=== PATIENT | female | born 1935 | race Caucasian/White ===

== ENCOUNTER 2016-08-12 11:55 | Observation (INO) | payer OTHER ==
[2016-08-03 10:47] LABS: ALLENS TEST Pos; BE (BASE EXCESS) 1.7 MEQ/L (0 +/- 2.5); CARBOXYHEMOGLOBIN 0.8 % (0-3); DEVICE NC; HCO3 (ACTUAL BICARBONATE) 27.3 MEQ/L (23-27); HEMOBLOGIN CONTENT 13.1 G/DL (12-16); INSTRUMENT SERIAL # 8083; METHEMOGLOBIN 0.1 % (0-3); O2 CONTENT 17.6 VOL% (18-24); PCO2 (CO2 TENSION) 47 MMHG (35-45); PO2 (O2 TENSION) 79 MMHG (79-93); SAMPLE Arterial; pH 7.39 (7.37-7.43)
[2016-08-03 11:30] LABS: BASOPHILS 0.4 %; BASOPHILS ABSOLUTE 0.02 10/3/uL (0.0-0.16); HEMATOCRIT 38.1 % (36.0-48.0); HEMOGLOBIN 12.5 g/dL (12.0-16.0); IMMATURE GRANULOCYTES 0.2 %; IMMATURE GRANULOCYTES ABSOLUTE 0.01 10/3/uL (0.0-0.11); LYMPHOCYTES 23.8 %; LYMPHOCYTES ABSOLUTE 1.18 10/3/uL (0.67-4.30); MEAN CORPUS HGB CONC 32.8 g/dL (32.0-36.0); MEAN CORPUSCULAR HEMOGLOB 30.5 pg (26.0-34.0); MEAN PLATELET VOLUME 9.2 fL (9.2-13.0); MONOCYTES 10.3 %; MONOCYTES ABSOLUTE 0.51 10/3/uL (0.21-1.20); NEUTROPHILS 63.3 %; NEUTROPHILS ABSOLUTE 3.13 10/3/uL (2.02-8.40); PLATELET COUNT 146 10/3/uL (150-400); RBC DISTRIBUTION WIDTH 12.8 % (12.0-16.0)
[2016-08-03 11:31] LABS: MANUAL DIFF NO %; MEAN CORPUSCULAR VOLUME 92.9 fL (80-100)
[2016-08-03 11:47] LABS: BUN (BLOOD UREA NITROGEN) 12 MG/DL (6-23); CALCIUM, SERUM 9.1 MG/DL (8.5-10.4); CHLORIDE, SERUM 105 MMOL/L (96-112); CO2 (CARBON DIOXIDE) 29 MMOL/L (24-34); CREATININE 0.91 MG/DL (0.55-1.02); GFR AFRICAN AMERICAN 70 ML/MIN (>=60); GFR NON AFRICAN AMERICAN 60 ML/MIN (>=60); GLUCOSE, SERUM 182 MG/DL (60-99); POTASSIUM, SERUM 3.8 MMOL/L (3.5-5.3); SODIUM, SERUM 144 MMOL/L (135-148)
[2016-08-03 11:49] LABS: ASCORBIC ACID (UR NOT ORDER) NEG (NEG); BILIRUBIN, URINE NEGATIVE (NEG); KETONE, URINE NEGATIVE (NEG); LEUKOCYTE ESTERASE(NOT OR SMALL (NEG); WBC (NOT ORDERED) (RFLEX) 25 (0-5)
--- NOTE | ~2016-08-12 | OP ---
Record Of Operation [facility] [address] [place]. [address] NAME: MICHELLE AMOR : 39 STATUS : ADM [place] PAT#: [id number] AGE: 80 ADM/REG DATE : 08/12/16 MR#: [id number] REPORT SERV DATE: 08/12/16 DICTATED BY: DON YANG III DATE: 08/12/16 REPORT STATUS : Draft TRANSCRIBED BY: MODL DATE: 08/12/16 DATE OF PROCEDURE: 08/12/2016 PROCEDURE: Cystoscopy, right retrograde ureteroscopy, and laser fragmentation of right renal calculus. PREOPERATIVE DIAGNOSIS: Right renal calculus. POSTOPERATIVE DIAGNOSIS: Right renal calculus. ANESTHESIA: General. SURGEON: Don Yang M.D. DESCRIPTION OF PROCEDURE: Following induction of adequate general anesthesia, the patient was placed in the dorsal lithotomy position, prepped and draped in a sterile fashion. The urethra was examined and noted to be normal. The proximal bladder were unremarkable without stone, erythema, or tumor. A retrograde showed a narrow distal ureter. In fact it was difficult to pass a Pollack through the orifice. The ureter was normal caliber, was somewhat small at the UPJ. She had an extrarenal pelvis with a 1.5 cm stone visible before the dye and a filling defect after the dye. A wire was placed and I elected to go ahead and dilate the distal ureter. The orifices were very small and even passing the balloon, it was still tight at the orifice. A 4 cm balloon was passed and inflated to 10 atmospheres and the balloon removed. A 0.038 wire was then placed and at first, we had attempted a 12- Hungarian sheath which passed easily until the pelvic brim and I could not make any headway. An 11-Hungarian was passed with gentle pressure, it did pass up into the proximal ureter without too much resistance, however when I passed a second wire and tried to pass the 11- Hungarian sheath alongside the wire into the upper tract, it simply would not progress. I then obtained a 9.5 Hungarian 28 cm sheath which passed all the way through the distal mid and the majority of the proximal ureter but was tight in the proximal ureter and UPJ. Two wires were placed, 1 wire was in the sheath and 1 was a safety wire. With some significant maneuvering, I was able to get into the renal pelvis; however, the tip of the scope allowed me to visualize the stone but I really could not work much with it due to the snugness around the scope. I elected to place the sheath up over a wire and put the scope over the wire without a safety wire and I had much more freedom of maneuver in the kidney. The stone was placed on the mid range dusting for kidney as per the setting suggested and the stone was fragmented around the circumference; however, it was quite mobile and even with light dusting, the stone moved a good bit. I finally did break the stone up into several fragments, two of which were trapped in a calyx where better dusting could be done. After dusting these 2 stones, the final stone was dusted and bleeding actually was surprisingly small. There had been some bleeding after the dilatation of the ureteral dilatation in the kidney; however, there was minimal bleeding. After approximately an hour and a half of fragmentation, I elected to place a stent. Since I only had a 9.5 Hungarian sheath and with a safety wire, I felt it dangerous to try to extract fragments. With the size of the access sheath, it would have been difficult to extract any sizable fragments anyway. A double-J stent of 6/24 size was placed. It probably would fit better with a 22; however, I did get a Record Of Operation [address] [place]. [address] NAME: MICHELLE AMOR Ron : 39 STATUS : ADM [place] PAT#: [id number] AGE: 80 ADM/REG DATE : 08/12/16 MR#: [id number] REPORT SERV DATE: 08/12/16 DICTATED BY: DON YANG III DATE: 08/12/16 REPORT STATUS : Draft TRANSCRIBED BY: MODL DATE: 08/12/16 redundant loop in the renal pelvis and a loop in the bladder. There was clot in the bladder that came from the ureter and this was evacuated. It should be noted that when the ureteroscope was pulled back through the ureter at the end of the ureteroscopic portion of the procedure, I saw no active bleeding or any obvious perforation. She tolerated the procedure well. We will keep her tonight due to her poor pulmonary function. OB/MODL Don Yang III, M.D. / [id number] CC: Perry Borges III, M.D.
[~2016-08-12 11:55] MED LIST: ACID REDUCER OTC PO; ADVAIR230P INH; AQUASOL E50 UNT/ML PO; ASAB PO; ATRONASAL3 NAS; AVINZA30 PO; BROVANA15 MCG IN; BROVANA15 MCG INH; CALTRA600D PO; CALTRAT600 PO; CIP2 PO; COLON HEALTH PO; CYMBALTA30 PO; DUONEB INH; FERRALET OR; FIBERCON PO; FLAG500TAB PO; FLEX PO; FOLIC ACID400 MC1 PO; FOLIC PO; GAS-X80 MG PO; INSTRINSI OR; KAPIDEX30 MG PO; LEVAQUIN5T PO; LIPITOR20 PO; LORTAB10 PO; MAGNESIUM GLUCONATE PO; MAGONATE PO; MIRALAXPKT PO; MOMTAB PO; MOMUD PO; MSCONT15 PO; MUSCLE RU3 EX; NATURL FIBER68 % PO; NEXIUM20 M1 PO; NEXIUM20 MG PO; NEXIUM40 PO; NORCO PO; NORCO1 TAB PO; OS500+D PO; OXYGEN; PCET PO; PREDFORTE OPH; PRILO PO; PRILOSEC; PULRESP.5 INH; REFRESH OP; REFRESH PLUS O0.4 ML OPH; SENTAB PO; SPIRIVA INH; SYMBICORT 160/41 INH INH; TITRALALIQ PO; TUMS E-X750 M2 PO; VENTOLIN HFA INH; VITAMIN B-122500 MCG SL; VITAMIN C1000 MG PO; VITAMIN D1000 UNI1 PO; VITAMIN D31000 UNIT PO; VITE PO; VITE1000 PO; XOPENEX0.63 MG INH; XOPENEX1.25 MG/3 INH; ZOFRAN4 PO; ZOL100 PO; [UNRECOGNIZED DRUG - CODE] EX
[2016-08-13 05:09] LABS: BASOPHILS 0.1 %; BASOPHILS ABSOLUTE 0.01 10/3/uL (0.0-0.16); EOSINOPHILS 0 %; HEMATOCRIT 40.3 % (36.0-48.0); HEMOGLOBIN 13.4 g/dL (12.0-16.0); IMMATURE GRANULOCYTES 0.1 %; IMMATURE GRANULOCYTES ABSOLUTE 0.01 10/3/uL (0.0-0.11); LYMPHOCYTES 7.2 %; LYMPHOCYTES ABSOLUTE 0.64 10/3/uL (0.67-4.30); MANUAL DIFF NO %; MEAN CORPUS HGB CONC 33.3 g/dL (32.0-36.0); MEAN CORPUSCULAR HEMOGLOB 31.3 pg (26.0-34.0); MEAN CORPUSCULAR VOLUME 94.2 fL (80-100); MEAN PLATELET VOLUME 9.8 fL (9.2-13.0); MONOCYTES 7.2 %; MONOCYTES ABSOLUTE 0.64 10/3/uL (0.21-1.20); NEUTROPHILS 85.4 %; NEUTROPHILS ABSOLUTE 7.61 10/3/uL (2.02-8.40); PLATELET COUNT 171 10/3/uL (150-400); RBC DISTRIBUTION WIDTH 12.6 % (12.0-16.0); RED CELL COUNT 4.28 10/6/uL (4.0-5.6); WHITE BLOOD CELLS 8.9 10/3/uL (4.5-10.5)
[2016-09-03] MEDS ORDERED: VENTOLIN HFA INH (12:56)
[2016-09-03] MEDS ORDERED: ALBUTEROL5 INH (12:56)
[2016-09-03] MEDS ORDERED: INCRUSE ELLI62.5 MCG INH (12:56)
[2016-09-03] MEDS ORDERED: TEARS PURE OPH (12:56)
[2016-09-03] MEDS ORDERED: VITC500 PO (12:57)
[2016-09-03] MEDS ORDERED: [UNRECOGNIZED DRUG - OTHER] (12:57)
[2016-09-03] MEDS ORDERED: ZOL100 PO (12:58)
[2016-09-03] MEDS ORDERED: FOLIC ACID400 MC1 PO (12:58)
[2016-09-03] MEDS ORDERED: LIPITOR20 PO (12:58)
[2016-09-03] MEDS ORDERED: ADVAIR115P INH (12:58)
[2016-09-03] MEDS ORDERED: PEP20 PO (12:58)
[2016-09-03] MEDS ORDERED: MIRALAX (12:58)
[2016-09-03] MEDS ORDERED: VITAMIN D31000 UNIT PO (12:58)
[2016-09-03] MEDS ORDERED: NORCO1 TAB PO (12:58)
[2016-09-03] MEDS ORDERED: PROBIOTIC PO (12:59)
[2016-09-03] MEDS ORDERED: ZOFRAN4 PO (12:59)
[2016-09-03] MEDS ORDERED: VITE PO (12:59)
[2016-09-03] MEDS ORDERED: [UNRECOGNIZED DRUG - REMARK] TOP (12:59)
== END 2016-08-13 17:41 | disposition home or self-care (01) ==
LOC: SDC 11:55 → 4SO 17:28
PROVIDERS: Urology
PROC: 0TF38ZZ Fragmentation in Right Kidney Pelvis, Via Natural or Artificial Opening Endoscopic (ICD-10-PCS; principal; 2016-08-12 13:15)
DX: N20.0 Calculus of kidney (principal); E78.00 Pure hypercholesterolemia, unspecified; J44.9 Chronic obstructive pulmonary disease, unspecified; M79.7 Fibromyalgia; M19.90 Unspecified osteoarthritis, unspecified site; G25.81 Restless legs syndrome; F32.9 Major depressive disorder, single episode, unspecified; Z87.442 Personal history of urinary calculi; K21.9 Gastro-esophageal reflux disease without esophagitis; F41.0 Panic disorder [episodic paroxysmal anxiety]; Z96.1 Presence of intraocular lens; H91.90 Unspecified hearing loss, unspecified ear; Z99.81 Dependence on supplemental oxygen; Z79.899 Other long term (current) drug therapy; Z90.49 Acquired absence of other specified parts of digestive tract; Z90.711 Acquired absence of uterus with remaining cervical stump; Z86.19 Personal history of other infectious and parasitic diseases; Z86.2 Personal history of diseases of the blood and blood-forming organs and certain disorders involving the immune mechanism; Z87.891 Personal history of nicotine dependence; Z90.89 Acquired absence of other organs; Z98.41 Cataract extraction status, right eye; Z98.42 Cataract extraction status, left eye; Z96.652 Presence of left artificial knee joint; Z98.890 Other specified postprocedural states; Z79.51 Long term (current) use of inhaled steroids
CPT/HCPCS: 74420; 80048; 81001; 82805; 82962; 85025; 87086; 93005; 94640; 96374; 96375; 96376; A9270-GY; C1726; C1758; C1769; C1894; C2617; G0378; J1170; J2370; J2405; J2550; J2710; J3010; Q9967

== ENCOUNTER 2016-09-14 13:51 | Day surgery (SDC) | payer OTHER ==
--- NOTE | ~2016-09-14 | OP ---
Record Of Operation [facility] [address] [place]. [address] NAME: MICHELLE AMOR : 39 STATUS : [facility]#: [id number] AGE: 81 ADM/REG DATE : 09/14/16 MR#: [id number] REPORT SERV DATE: 09/15/16 DICTATED BY: DON YANG III DATE: 09/14/16 REPORT STATUS : Draft TRANSCRIBED BY: MODL DATE: 09/14/16 DATE OF PROCEDURE: 09/14/2016 PROCEDURE: Cystoscopy, right retrograde; right flexible ureteroscopy with stone fragmentation; removal of ureteral and renal stones; and reinsertion of double-J stent. PREOPERATIVE DIAGNOSIS: Status post fragmentation of large right renal pelvic stone. POSTOPERATIVE DIAGNOSIS: Status post fragmentation of large right renal pelvic stone. ANESTHESIA: General. SURGEON: Don Yang M.D. DESCRIPTION OF PROCEDURE: Following induction of adequate general anesthesia, the patient was placed in the dorsal lithotomy position, prepped, and draped in sterile fashion. Cystoscopy was done. The stent was pulled from the meatus and a wire was placed. A rigid scope was passed almost to the UPJ. There were two stones in the ureter that were removed. Following this, a second wire was placed in an 11-[place] sheath placed up to the UPJ. A large cluster of stones in the calyx was identified in the lower portion of the kidney. These were dusted into very small fragments. Seven or eight of these were removed. There were some additional stones in the kidney that were small on total. In total, approximately 12-14 fragments were removed. The remaining fragments were quite small, in the 1-2 mm range. The system was opacified. There was no perforation. The ureter was examined on the way out and no perforations or stones in the kidney or ureter remained. A 6 x 24 stent was placed with upper pole loop in the bladder. We will have her come back to the office in two weeks for stent removal. OB/MODL Don aYng III, M.D. / [id number] CC: Don Yang III, M.D. Param Mosher M.D.
[~2016-09-14 13:51] MED LIST changes: +ADVAIR115P INH; +ALBUTEROL5 INH; +INCRUSE ELLI62.5 MCG INH; +MIRALAX; +PEP20 PO; +PROBIOTIC PO; +TEARS PURE OPH; +VITC500 PO; +[UNRECOGNIZED DRUG - OTHER]; +[UNRECOGNIZED DRUG - REMARK] TOP
[2016-09-20 16:53] LABS: STONE COMPOSITION TWO DNR (())
== END 2016-09-14 21:36 | disposition home or self-care (01) ==
LOC: SDC 13:51
PROVIDERS: Urology
PROC: 0T768DZ Dilation of Right Ureter with Intraluminal Device, Via Natural or Artificial Opening Endoscopic (ICD-10-PCS; 2016-09-14)
PROC: 0TC68ZZ Extirpation of Matter from Right Ureter, Via Natural or Artificial Opening Endoscopic (ICD-10-PCS; 2016-09-14)
PROC: 0TF38ZZ Fragmentation in Right Kidney Pelvis, Via Natural or Artificial Opening Endoscopic (ICD-10-PCS; principal; 2016-09-14 15:45)
DX: N20.2 Calculus of kidney with calculus of ureter (principal); J44.9 Chronic obstructive pulmonary disease, unspecified; M79.7 Fibromyalgia; G25.81 Restless legs syndrome; E66.9 Obesity, unspecified; Z68.39 Body mass index [BMI] 39.0-39.9, adult; Z79.52 Long term (current) use of systemic steroids; Z99.81 Dependence on supplemental oxygen; Z79.899 Other long term (current) drug therapy
CPT/HCPCS: 71020; 74420; 80048; 82365; 85014; 85018; 93005; A9270-GY; C1758; C1769; C2617; J0360; J2250; J2405; J3010; J3370; Q9967

== ENCOUNTER 2016-10-04 15:20 | Emergency (ER) | payer OTHER ==
[2016-10-04 13:27] LABS: BASOPHILS 0.2 %; BASOPHILS ABSOLUTE 0.01 10/3/uL (0.0-0.16); EOSINOPHILS 3.2 %; EOSINOPHILS ABSOLUTE 0.18 10/3/uL (0.0-0.53); ER CBC TAT 0 Hrs 05 Mins; HEMOGLOBIN 10.6 g/dL (12.0-16.0); IMMATURE GRANULOCYTES 0.2 %; IMMATURE GRANULOCYTES ABSOLUTE 0.01 10/3/uL (0.0-0.11); LYMPHOCYTES 22.9 %; LYMPHOCYTES ABSOLUTE 1.29 10/3/uL (0.67-4.30); MEAN CORPUS HGB CONC 32.8 g/dL (32.0-36.0); MEAN CORPUSCULAR HEMOGLOB 30.5 pg (26.0-34.0); MEAN CORPUSCULAR VOLUME 93.1 fL (80-100); MEAN PLATELET VOLUME 9.6 fL (9.2-13.0); MONOCYTES 11.9 %; MONOCYTES ABSOLUTE 0.67 10/3/uL (0.21-1.20); NEUTROPHILS 61.6 %; NEUTROPHILS ABSOLUTE 3.47 10/3/uL (2.02-8.40); PLATELET COUNT 142 10/3/uL (150-400); RBC DISTRIBUTION WIDTH 13.1 % (12.0-16.0); RED CELL COUNT 3.47 10/6/uL (4.0-5.6); WHITE BLOOD CELLS 5.6 10/3/uL (4.5-10.5)
[2016-10-04 13:28] LABS: HEMATOCRIT 32.3 % (36.0-48.0); MANUAL DIFF NO %
[2016-10-04 13:32] LABS: INTERNATIONAL NORMAL RATI 1.1 UNITS (-)
[2016-10-04 13:33] LABS: PARTIAL THROMBO TIME 35.4 SEC (22.5-37.2)
[2016-10-04 13:38] LABS: ALLENS TEST Pos; BE (BASE EXCESS) 1.4 MEQ/L (0 +/- 2.5); CARBOXYHEMOGLOBIN 1.3 % (0-3); HCO3 (ACTUAL BICARBONATE) 25.4 MEQ/L (23-27); INSTRUMENT SERIAL # 8087; METHEMOGLOBIN 0.2 % (0-3); OPERATOR ID 14472; PCO2 (CO2 TENSION) 37 MMHG (35-45); PO2 (O2 TENSION) 97 MMHG (79-93); SAMPLE Arterial; pH 7.45 (7.37-7.43)
[2016-10-04 13:39] LABS: ASCORBIC ACID (UR NOT ORDER) 20 (NEG); BILIRUBIN, URINE NEGATIVE (NEG); KETONE, URINE NEGATIVE (NEG); LEUKOCYTE ESTERASE(NOT OR LARGE (NEG); NITRITE (URINE) NEG (NEG); WBC (NOT ORDERED) (RFLEX) 11 (0-5)
[2016-10-04 13:41] LABS: CALCIUM, SERUM 9.8 MG/DL (8.5-10.4); CHEST PAIN PROFILE TAT 0 Hrs 19 Mins; CHLORIDE, SERUM 106 MMOL/L (96-112); CO2 (CARBON DIOXIDE) 30 MMOL/L (24-34); CREATININE 1.11 MG/DL (0.55-1.02); GFR AFRICAN AMERICAN 55 ML/MIN (>=60); GFR NON AFRICAN AMERICAN 47 ML/MIN (>=60); POTASSIUM, SERUM 4.4 MMOL/L (3.5-5.3); SODIUM, SERUM 142 MMOL/L (135-148); TROPONIN I <0.02 NG/ML (<0.05)
[2016-10-04 13:42] LABS: BUN (BLOOD UREA NITROGEN) 16 MG/DL (6-23); GLUCOSE, SERUM 134 MG/DL (60-99)
== END 2016-10-04 17:30 | disposition home or self-care (01) ==
LOC: ER 15:20
PROVIDERS: Emergency Medicine
DX: J44.1 Chronic obstructive pulmonary disease with (acute) exacerbation (principal); J45.909 Unspecified asthma, uncomplicated; I10 Essential (primary) hypertension; K21.9 Gastro-esophageal reflux disease without esophagitis; Z87.891 Personal history of nicotine dependence; Z79.899 Other long term (current) drug therapy
CPT/HCPCS: 36600; 71275; 80048; 81001; 82805; 83735; 84484; 85025; 85610; 85730; 87086; 93005; 93970; 94640; 99284; Q9967